=== PATIENT | female | born 1935 | race Hispanic/Latino ===

== ENCOUNTER 2017-10-04 09:02 | Emergency (ER) | payer MEDICARE, BC ==
[2017-10-04 09:16] VITALS: BMI 34.3
[2017-10-04] MEDS ORDERED: Oxycodone/Acetaminophen 5/325 mg Tab PO STA (09:16)
[2017-10-04 09:25] VITALS: RESP 18
--- NOTE | 2017-10-04 09:41 | ED PDOC ---
Arrival/HPI - General Chief Complaint: Lower Extremity Problem/Injury Time Seen by Provider: 10/04/17 09:15 Historian: Patient - History of Present Illness Narrative History of Present Illness (Text): 10/04/17 09:39 82yo female with PMHx of hypertension, hypothyroid, hyperlipdemia, B/L knees OA bib EMS for severe left knee pain, s/p trauma. Patient states her knee buckled at 0300am this morning, while trying to get water and she fell and landed on the left knee. States she called EMS and they lifted her up to her bed and left. However when she tried to ambulate later she couldn't, so she called EMS again and came to the ED. She denies hitting her head, LOC, focal weakness, any other complaint. Past Medical History - Provider Review Nursing Documentation Reviewed: Yes - Cardiac Hx Cardiac Disorders: Yes Hx Hypertension: Yes - Pulmonary Hx Respiratory Disorders: No - Neurological Hx Neurological Disorder: No - HEENT Hx HEENT Disorder: No - Renal Hx Renal Disorder: No - Endocrine/Metabolic Hx Endocrine Disorders: Yes Hx Hypothyroidism: Yes - Hematological/Oncological Hx Blood Disorders: No - Integumentary Hx Dermatological Disorder: No - Musculoskeletal/Rheumatological Hx Musculoskeletal Disorders: Yes Other/Comment: KNEE PAIN - Gastrointestinal Hx Gastrointestinal Disorders: Yes - Genitourinary/Gynecological Hx Genitourinary Disorders: No - Psychiatric Hx Psychophysiologic Disorder: Yes Hx Anxiety: Yes Hx Substance Use: No Family/Social History - Physician Review Nursing Documentation Reviewed: Yes Family/Social History: Unknown Family HX Smoking Status: Never Smoked Hx Alcohol Use: No Hx Substance Use: No Allergies/Home Meds Allergies/Adverse Reactions: Allergies No Known Allergies Allergy (Verified 10/04/17 09:20) Home Medications: Home Meds Medication Instructions Recorded Confirmed Unobtainable 10/04/17 10/04/17 Review of Systems - Physician Review All systems were reviewed & negative as marked: Yes - Review of Systems Constitutional: Normal Eyes: Normal ENT: Normal Respiratory: Normal Cardiovascular: Normal Gastrointestinal: Normal Genitourinary Female: Normal Musculoskeletal: Arthralgias (Left knee pain) Skin: Normal Neurological: Normal Endocrine: Normal Hemo/Lymphatic: Normal Psychiatric: Normal Physical Exam Vital Signs Reviewed: Yes Vital Signs Temp Pulse Resp BP Pulse Ox 10/04/17 13:30 98.4 F 77 18 120/62 99 06/04/18 11:32 99.6 F 90 18 135/69 100 10/04/17 09:20 98.3 F 89 18 138/85 100 Temperature: Afebrile Blood Pressure: Normal Pulse: Regular Respiratory Rate: Normal Appearance: Positive for: Well-Appearing, Non-Toxic, Comfortable Pain Distress: None Mental Status: Positive for: Alert and Oriented X 3 - Systems Exam Head: Present: Atraumatic, Normocephalic Pupils: Present: PERRL Extroacular Muscles: Present: EOMI Conjunctiva: Present: Normal Mouth: Present: Moist Mucous Membranes Neck: Present: Normal Range of Motion Respiratory/Chest: Present: Clear to Auscultation, Good Air Exchange. No: Respiratory Distress, Accessory Muscle Use Cardiovascular: Present: Regular Rate and Rhythm, Normal S1, S2. No: Murmurs Abdomen: No: Tenderness, Distention, Peritoneal Signs Back: Present: Normal Inspection Upper Extremity: Present: Normal Inspection. No: Cyanosis, Edema Lower Extremity: Present: NORMAL PULSES, Tenderness (Diffuse left knee), Swelling (Profuse swelling/effusion noted on left knee), Neurovascularly Intact. No: Edema, Normal ROM (Unable to asses secondary to pain), Erythema ( Purpura/ecchymosis noted over left anterior knee) Neurological: Present: GCS=15, CN II-XII Intact, Speech Normal Skin: Present: Warm, Dry, Normal Color. No: Rashes Psychiatric: Present: Alert, Oriented x 3, Normal Insight, Normal Concentration Medical Decision Making ED Course and Treatment: 10/04/17 10:01 82yo female bib EMS for left knee pain/swelling s/p trauma. Pt was seen as soon as she arrived in ED. She report sever pain to the pain, but does not appear to be in distress. She was Hemodynamically stable. Profuse swelling/effusion of left knee was noted. Percocet was ordered for pain control. Left knee xray was ordered. Left knee xray - Distal femur comminuted fracture. Result was DW the pt and the daughter by the bedside. She requested Dr. Wright. Traction was applied to try to reduce fracture and long posterior splint was applied. PT remain NVI s/p splint. Called placed to Dr. Wright and waiting for a call back. 10/04/17 12:[address] Wright who stated that he saw the xray himself. Notes that he is booked for today and tomorrow and recommends a different orthopedist for the case. He spoke with pt's daughter and the daughter requested Dr. Arredondo, who is affiliated with [facility]. I DC with Dr. Arredondo and he accepted pt for transfer. I also DC with the ED attending, Dr. Pat and she accepted pt. PT remain NVI in ED. Knee immobilizer was placed in ED and her pain was controlled with medication. - Lab Interpretations Lab Results: 10/04/17 11:30 10/04/17 11:50 Lab Results 10/04/17 11:50: PT 13.5 H, INR 1.17 H, APTT 27.5 10/04/17 11:50: Sodium 143, Potassium 4.9, Chloride 107, Carbon Dioxide 24, Anion Gap 17, BUN 19, Creatinine 1.0, Est GFR ( Amer) > 60, Est GFR (Non- Af Amer) 53, Random Glucose 121 H, Calcium 9.5, Total Bilirubin 0.6, AST 69 H, ALT 56, Alkaline Phosphatase 114, Total Protein 7.5, Albumin 4.3, Globulin 3.3, Albumin/Globulin Ratio 1.3 10/04/17 11:30: WBC 12.6 H, RBC 4.35, Hgb 11.9 L, Hct 36.8, MCV 84.6, MCH 27.4, MCHC 32.3, RDW 14.5, Plt Count 240, MPV 9.7, Gran % 64.0, Lymph % (Auto) 21.2 L , [place] % (Auto) 13.9 H, Eos % (Auto) 0.6 L, Baso % (Auto) 0.3, Gran # 8.05 H, Lymph # (Auto) 2.7, [place] # (Auto) 1.7 H, Eos # (Auto) 0.1, Baso # (Auto) 0.04 - RAD Interpretation Radiology Orders: 10/04/17 09:16 KNEE LEFT 2 VIEWS (AP & LAT) [RAD] Stat 10/04/17 10:34 CHEST PORTABLE [RAD] Stat - Medication Orders Current Medication Orders: Discontinued Medications Morphine Sulfate (Morphine) 4 mg IVP STAT STA Stop: 10/04/17 11:35 Last Admin: 10/04/17 12:00 Dose: 4 mg MAR Pain Assessment Document 10/04/17 12:00 OCS (Rec: 10/04/17 12:01 [place] [id number]) Pain Reassessment Is this a pain reassessment? Yes Sleep Is patient sleeping during reassessment? No Presence of Pain Presence of Pain Yes Pain Scale Used Pain Scale Used Numeric Location Pain Location Body Site Knee Description Description Constant Intensity of Pain at present 10 Aggravating Factors ADL's IVP Administration Document 10/04/17 12:00 OCS (Rec: 10/04/17 12:01 [place] [id number]) Charges for Administration # of IVP Administrations 1 Oxycodone/Acetaminophen (Percocet 5/325 Mg Tab) 1 tab PO STAT STA Stop: 10/04/17 09:17 Last Admin: 10/04/17 09:29 Dose: 1 tab [facility] Pain Assessment Document 10/04/17 09:29 OCS (Rec: 10/04/17 09:31 OCS [id number]) Pain Reassessment Is this a pain reassessment? No Sleep Is patient sleeping during reassessment? No Presence of Pain Presence of Pain Yes Pain Scale Used Pain Scale Used Numeric Location Left, Right or Bilateral Left Pain Location Body Site Knee Description Intensity of Pain at present 10 Pain Behavior Moaning Facial Grimacing Aggravating Factors ADL's Re-Assess: MAR Pain Assessment Document 10/04/17 10:29 OCS (Rec: 10/04/17 12:01 [id number] Pain Reassessment Is this a pain reassessment? Yes Sleep Is patient sleeping during reassessment? No Pain Scale Used Pain Scale Used Numeric Location Left, Right or Bilateral Left Pain Location Body Site Knee Description Description Constant Intensity of Pain at present 7 Aggravating Factors ADL's Disposition/Present on Arrival - Present on Arrival Any Indicators Present on Arrival: No History of DVT/PE: No History of Uncontrolled Diabetes: No Urinary Catheter: No History of Decub. Ulcer: No History Surgical Site Infection Following: None - Disposition Have Diagnosis and Disposition been Completed?: Yes Diagnosis: Femur fracture, left Disposition: Transfer [facility] Disposition Time: 13:45 Condition: FAIR Forms: [employer] (Togolese)
--- NOTE | 2017-10-04 10:57 | RAD ---
PROCEDURE: Left knee two views HISTORY: knee pain s/p trauma COMPARISON: TECHNIQUE: Two views FINDINGS: There is a severely displaced transverse fracture through the distal femur above the condyles. The femoral shaft is displaced anteriorly. IMPRESSION: As above
--- NOTE | 2017-10-04 11:02 | RAD ---
HISTORY: admission COMPARISON: No prior. FINDINGS: LUNGS: No active pulmonary disease. PLEURA: No significant pleural effusion identified, no pneumothorax apparent. CARDIOVASCULAR: Normal. OSSEOUS STRUCTURES: No significant abnormalities. VISUALIZED UPPER ABDOMEN: Normal. OTHER FINDINGS: None. IMPRESSION: No active disease.
[2017-10-04] MEDS ORDERED: Morphine 4 mg/ml ISec IVP STA (11:34)
[2017-10-04 11:42] LABS: BASO # 0.04 K/mm3 (0.0-2.0); BASO % 0.3 % (0.0-3.0); EOS # 0.1 (0.0-0.7); EOS % 0.6 % (1.5-5.0); GRAN # 8.05 (1.4-6.5); HEMOGLOBIN 11.9 g/dL (12.0-16.0); LYMPH # 2.7 (1.2-3.4); LYMPH % 21.2 % (22.0-35.0); MEAN CELL VOLUME 84.6 fl (80.0-105.0); MEAN CORPUSCULAR HEMOGLOBIN 27.4 pg (25.0-35.0); MEAN CORPUSCULAR HGB CONC 32.3 g/dl (31.0-37.0); MEAN PLATELET VOLUME 9.7 fl (7.0-11.0); MONO # 1.7 (0.1-0.6); MONO % 13.9 % (1.0-6.0); RBC 4.35 10^6/uL (3.5-6.1); RED CELL DISTRIBUTION WIDTH 14.5 % (11.5-14.5); WHITE BLOOD COUNT 12.6 10^3/ul (4.5-11.0)
[2017-10-04 12:08] LABS: ALB/GLOB RATIO 1.3 (1.1-1.8); ALBUMIN 4.3 g/dL (3.0-4.8); ALT/SGPT 56 U/L (7-56); AST/SGOT 69 U/L (14-36); BLOOD UREA NITROGEN 19 mg/dL (7-21); CALCIUM 9.5 mg/dL (8.4-10.5); GFR AFRICAN-AMERICAN > 60; GFR NON-AFRICAN AMERICAN 53
[2017-10-04 12:16] LABS: INR 1.17 (0.93-1.08); PARTIAL THROMBOPLASTIN TIME 27.5 Seconds (25.1-36.5); PROTHROMBIN TIME 13.5 SECONDS (9.4-12.5)
[2017-10-04 13:44] VITALS: BP 120/62; PULSE 77; TEMP 98.4; O2SAT 99
== END 2017-10-04 13:30 | disposition short-term general hospital (02) ==
LOC: ED 09:02
DX: S72.402A Unspecified fracture of lower end of left femur, initial encounter for closed fracture (principal); W01.0XXA Fall on same level from slipping, tripping and stumbling without subsequent striking against object, initial encounter; Y92.009 Unspecified place in unspecified non-institutional (private) residence as the place of occurrence of the external cause; I10 Essential (primary) hypertension; E78.5 Hyperlipidemia, unspecified; M17.0 Bilateral primary osteoarthritis of knee
CPT/HCPCS: 71045; 73560; 80053; 85025; 85610; 85730; 96374; 99283; J2270